=== PATIENT | female | born 1980 | race Caucasian/White ===

== ENCOUNTER 2021-09-30 18:30 | Emergency (ER) | payer BC, OTHER ==
[2021-09-30 18:56] VITALS: BP 144/91; PULSE 98
== END 2021-09-30 20:20 | disposition home or self-care (01) ==
LOC: JD.ED 18:30
DX: S92.252A Displaced fracture of navicular [scaphoid] of left foot, initial encounter for closed fracture (principal); Z88.8 Allergy status to other drugs, medicaments and biological substances; W10.9XXA Fall (on) (from) unspecified stairs and steps, initial encounter
CPT/HCPCS: 29515; 73610-26-LT; 73610-LT; 73630-26-LT; 73630-LT; 99283; 99283-25